=== PATIENT | male | born 1955 | race Caucasian/White ===

== ENCOUNTER → 2019-12-16 | Outpatient (CLI) | payer BC ==
--- NOTE | 2019-12-16 12:21 | RAD ---
EXAM DESCRIPTION: Abdomen 1 View CLINICAL HISTORY: 64 years Male, ABDOMINAL DISTENTION COMPARISON: None. Findings: Two view(s)/radiograph(s) Location: abdomen Nonobstructive bowel gas pattern. No suspicious calcification. No acute osseous abnormalities. Soft tissues are unremarkable. Moderate stool volume. Visualized lung bases are clear. No free air. IMPRESSION: Nonobstructive bowel gas pattern. Electronically signed by: Zhao Mera MD 12/16/2019 12:20 PM CDT
== END ==
LOC: LAB.O 11:36
PROVIDERS: ATTEND Registered Nurse General Practice
DX: R14.0 Abdominal distension (gaseous) (principal)

== ENCOUNTER → 2020-06-20 | Outpatient (CLI) | payer BC ==
--- NOTE | 2020-06-21 20:33 | US ---
EXAM DESCRIPTION: Abdomen,Complete: Ultrasound. CLINICAL HISTORY: 64 years Male abdominal distension COMPARISON: None Available. TECHNIQUE: Transabdominal scanning: grayscale and Doppler modes.. Technically difficult study due to patient large body habitus. FINDINGS: Gallbladder: normal size, shape, echogenicity; no intraluminal stones or sludge. No fluid around the gallbladder. No wall thickening. 2.1 mm Non-tender with transducer pressure. Common bile duct: caliber 5.5 mm within normal limits. Liver: Heterogeneously increased echogenicity; contour liver capsule smooth where seen. No fluid around the liver. Intrahepatic biliary ducts normal caliber. Doppler hepatopedal flow and normal caliber portal vein 7 mm.. Long axis right lobe 13.3 cm. Pancreas: Limited view of the pancreas. Duct not seen. Complete abdominal aorta: Normal caliber from the proximal segment to the distal bifurcation.. IVC: visualized and normal caliber. Right kidney: long axis measures 9.3 cm; volume 148.4 mL. Cortical echogenicity normal. Normal cortical thickness. No echogenic stones; no hydronephrosis. Left kidney: long axis measures 10.0 cm; volume 187.5 mL. Cortical echogenicity normal. Normal cortical thickness. No echogenic stones; no hydronephrosis. Spleen: Normal. No focal lesions.. 9.2 cm long axis. Other: None. IMPRESSION: 1. Technically difficult study due to patient large body habitus. Gallbladder and common bile duct are unremarkable. Negative findings and the spleen. 2. Steatosis of the liver with no focal lesions. Not enlarged. Physiologic vascularity and 6. Smooth capsule with no ascites. Limited views of the pancreas but duct not seen. 3. Bilateral kidneys with negative findings. Normal caliber of the abdominal aorta and the IVC. Electronically signed by: Abisai Reyes MD 06/21/2020 8:31 PM [employer]
== END ==
LOC: US 10:41
PROVIDERS: ATTEND Nurse Practitioner Family
DX: R14.0 Abdominal distension (gaseous) (principal); K76.0 Fatty (change of) liver, not elsewhere classified